=== PATIENT | male | born 1960 | race Caucasian/White ===

== ENCOUNTER → 2016-11-23 | Outpatient (CLI) | payer BC ==
[~2016-11-23] MED LIST: ATOR-54 PO; METH500T PO; METO25TA56 PO; OXYC-609 PO; TERA5CAP PO; WARF5TAB90 PO
--- NOTE | 2016-11-23 11:41 | DIAGNOSTIC IMAGING REPORT ---
KUB CLINICAL HISTORY: Right lower quadrant abdominal pain. FINDINGS: An AP supine abdominal radiograph is compared to study dated 11/21/2014. There is a nonobstructed abdominal bowel gas pattern noting moderate colonic fecal retention. There are no abnormal abdominal calcifications. Phleboliths are seen in the pelvis. The bony structures appear intact. There is mild lumbosacral spondylosis and scoliosis. IMPRESSION: Nonobstructed abdominal bowel gas pattern. Electronically signed by: Naeem Holguin M.D. 11/23/2016 11:40 AM Dictated Date/Time: 11/23/2016 11:39 AM
== END | disposition home or self-care (01) ==
LOC: C.RADBC 10:58
PROVIDERS: ATTEND Urology
DX: N40.1 Benign prostatic hyperplasia with lower urinary tract symptoms (principal)

== ENCOUNTER 2018-12-27 16:50 | Inpatient (IN) ==
[2018-12-27 19:00] LABS: Hematocrit (blood only) 19.2 % (42-52); Hemoglobin 6.5 g/dL (14.0-18.0); Mean Corpuscular Hemoglobin 30.7 pg (25-34); Mean Corpuscular Hgb Conc 33.9 g/dL (32-36); Mean Corpuscular Volume 90.6 fL (80-100); Mean Platelet Volume 8.8 fL (7.4-10.4); Platelet Count 209 K/uL (130-400); RDW Coefficient of Variation 13.6 % (11.5-14.5); RDW Standard Deviation 45.5 fL (36.4-46.3); Red Blood Count 2.12 M/uL (4.7-6.1); White Blood Count 7.33 K/uL (4.8-10.8)
[2018-12-27 19:13] LABS: Alanine Aminotransferase 20 U/L (12-78); Albumin Level 3.2 gm/dl (3.4-5.0); Aspartate Aminotransferase 27 U/L (15-37); BUN Creatinine Ratio 14.1 (10-20); Blood Urea Nitrogen 10 mg/dl (7-18); Calcium 8.8 mg/dl (8.5-10.1); Carbon Dioxide 31 mmol/L (21-32); Chloride 102 mmol/L (98-107); Est GFR (African American) 118.2; Glucose 101 mg/dl (70-99); Potassium 3.8 mmol/L (3.5-5.1); Sodium 138 mmol/L (136-145)
[2018-12-27 19:15] LABS: Albumin Globulin Ratio 1.1 (0.9-2); Alkaline Phosphatase 57 U/L (45-117); Bilirubin,Total 1.4 mg/dl (0.2-1); Globulin 2.8 gm/dl (2.5-4.0)
[2018-12-27 19:16] LABS: INR 2.1 (0.9-1.1); Partial Thromboplastin Ratio 1.9; Prothrombin Time 20.7 Seconds (9.0-12.0)
[2018-12-27 19:20] LABS: Partial Thromboplastin Time 50.5 Seconds (21.0-31.0)
[2018-12-27] MEDS ORDERED: IOVERSOL 100ml IV PRN (19:33)
[2018-12-27 19:39] LABS: Basophils # (auto) 0.02 K/uL (0-0.2); Basophils % (auto) 0.3 %; Eosinophils # (auto) 0.09 K/uL (0-0.5); Eosinophils % (auto) 1.2 %; Immature Granulocytes # (auto) 0.01 K/uL (0.00-0.02); Immature Granulocytes % (auto) 0.1 %; Lymphocytes # (auto) 1.12 K/uL (1.2-3.4); Lymphocytes % (auto) 15.3 %; Monocytes # (auto) 0.76 K/uL (0.11-0.59); Monocytes % (auto) 10.4 %; Neutrophils # (auto) 5.33 K/uL (1.4-6.5); Neutrophils % (auto) 72.7 %; RBC Morphology Unremarkable
--- NOTE | 2018-12-27 19:56 | CT Scan Report ---
RIGHT FEMUR CT with contrast CT DOSE: 315.68 mGy.cm HISTORY: Right thigh swelling. expanding hematoma TECHNIQUE: Multiaxial CT images of the right femur were performed and reformatted in the sagittal and coronal plane following the use of intravenous contrast. A dose lowering technique was utilized adh ering to the principles of ALARA. COMPARISON: Right femur CTA 12/24/2018. FINDINGS: No fracture or dislocation within the visualized pelvis or right femur. Extensive subcutane ous edema throughout the right thigh. This has progressed. The 20 x 8 x 6 cm right gracilis intramusc ular hematoma is not significantly changed. There is a small focus of hemorrhage also adjacent to the muscle which is stable. There is been interval development of a small intramuscular hematoma within the semimembranosus muscle which measures approximately 4.2 cm. IMPRESSION: 1. No significant change in the 20 x 8 x 6 cm right psoas intramuscular hematoma. 2. Interval development of a 4.2 cm intramuscular hematoma within the right semimembranosus muscle. 3. Progressive subcutaneous edema within the right thigh. Electronically signed by: Aren Vance M.D. 12/27/2018 7:55 PM
[2018-12-27] MEDS ORDERED: SODIUM CHLORIDE 0.9% 250 ML IV PRN ×2 (20:33→21:51)
[2018-12-27] MEDS ORDERED: ACETAMINOPHEN 325 MG TAB PO PRN (21:23)
[2018-12-27] MEDS ORDERED: ONDANSETRON INJ 2 MG/ML 2 ML VIAL IV PRN (21:51)
[2018-12-27] MEDS: HYDROCODONE/ACETAMINOPHEN 7.5/325MG TAB PO PRN (22:00)
--- NOTE | 2018-12-27 22:52 | History & Physical Report ---
Date of Service December 27, 2018 Assessment & Plan (1) Symptomatic anemia: Admit tele will give total of 2 units PRBCs check CBC in the am (2) Hematoma of right thigh: No sign of compartment syndrome will have nursing do neurovascular checks q 4 hours Consult ortho Pain control. (3) Anticoagulated on Coumadin: His bleeding is not life threatening at this time to warrant reversal of warfarin. I will give blood and monitor HGB level. At which point it is felt that the patient HGB is stable and the blood loss has stopped, I would recommend restarting anticoagulation at the discretion of the attending at that time. (4) Aortic valve replaced: Mechanical aortic valve with INR goal of 2.5-3.5 INR is 2.1 at this time, to which I am comfortable Daily INR. (5) HTN (hypertension): No issues at this time Takes Terazosin for BPH and BP according to patient. Continue Terazosin. (6) High cholesterol: Continue Atorvastatin. History of Present Illness 58 y/o male presented to the ED from his PCP office with anemia as a result of hematoma in the right thigh. The patient was skydiving 5 days prior and suffered a hard landing which caused b/l sprained ankles and right thigh hematoma. He has had HGB checks over the past few days and today was found to have HGB 6.5. He is symptomatic with this finding to include lightheadedness with standing and overall fatigue. His situation is complicated in that he takes warfarin for mechanical aortic valve. He does have 8/10 pain in the the right thigh, but the pain is not more than he has been having. No F/C, cough, SOB, chest pain, N/V/D. Primary Care Provider: BRIAN Ulloa Allergies Allergy/AdvReac Type Severity Reaction Status Date / Time cyclobenzaprine Allergy Unknown Hyper Verified 12/27/18 15:47 Home Medications Home Medications Medication Instructions Recorded Confirmed Type multivitamin capsule 1 cap PO DAILY 07/24/18 12/27/18 History atorvastatin 20 mg tablet 20 mg PO QPM #90 tab 08/23/18 12/27/18 Rx methocarbamol 500 mg tablet 500 - 1,000 mg PO QID PRN tab 11/03/18 12/27/18 History sildenafil (antihypertensive) 20 20 mg PO ONCE #60 tab 12/19/18 12/27/18 Rx mg tablet terazosin 5 mg capsule 5 mg PO HS #90 cap 12/19/18 12/27/18 Rx warfarin 2.5 mg PO GRAHAM 12/24/18 12/27/18 History warfarin 5 mg PO MOTUWETHFRSA 12/24/18 12/27/18 History hydrocodone 5 mg-acetaminophen 325 1 tab PO Q6H PRN #20 tab 12/25/18 12/27/18 Rx mg tablet Past Med/Surg History Medical History Actinic keratosis (Acute) Atypical nevi (Acute) Benign prostatic hyperplasia with urinary obstruction (Acute) Current use of director long term care anticoagulation (Acute) Degeneration of cervical intervertebral disc (Acute) Surgical History Aortic valve replaced (Acute) Social History Preferred Language: Macanese Communication Ability: Effective Prison Officer Required: No Beliefs That Will Affect Care: None Current Living Situation: Family Other Information That Helps Us Care for You: No Feels Safe at Home: Yes Safety Concerns: Feels Safe At This Time Smoking Status: Unknown if ever smoked Hx Alcohol Use: No Hx Substance Use: No Review of Systems Review of Systems: NEEDS EDITING Constitutional- no fever; no weight loss Eyes- no acute visual changes ENT- no sinus drainage; no pharyngitis Pulmonary- no cough, no wheezing, no shortness of breath Cardiac- no chest pain, no palpitations, no orthopnea, no dependent edema GI- no nausea, no vomiting, no diarrhea, no melena, no hematochezia - no dysuria, no hematuria Musculoskeletal- As in HPI Derm- no rashes, + ecchymosis to the Right thigh Hematologic- Swelling and ecchymosis of right thigh in conjunction with hematoma. Lymphatics- no adenopathy Endocrine- no polyuria or polydipsia; no heat or cold intolerance Neuro- no headaches, no focal neurologic symptoms Psych- no anxiety, no depression Physical Exam Physical Exam: NEEDS EDITING General- adult male, NAD Head- atraumatic Eyes- PERRL, EOMI, anicteric ENT- oropharynx clear Neck- supple, no JVD, no adenopathy, no thyromegaly. Lungs- clear to auscultation No rales, rhonchi, or wheezes. Heart- regular rhythm; Mechanical valve click, no gallop, no rub appreciated Abdomen- normal bowel sounds, soft, nontender. Extremities- Swelling to right thigh with tenderness to palpation and ecchymosis. Neuro- alert, oriented x 3; PERRL, EOMI; Non-focal, coke loader II-XII grossly intact. distal neurovascular is intact right lower ext. Skin- warm & dry, ecchymosis to right thigh. Results & Data Vital Signs (Past 12 Hours) Vital Signs Temp Pulse Pulse Resp BP BP Pulse Ox 12/27/18 22:04 36.8 C 107 H 22 135/75 98 12/27/18 21:55 37.4 C 115 H 17 141/67 H 96 12/27/18 21:51 121 H 18 127/72 97 12/27/18 21:49 37.1 C 109 H 18 127/72 96 12/27/18 21:46 111 H 12 127/72 98 12/27/18 21:45 112 H 15 97 12/27/18 21:34 37.3 C 109 H 18 135/72 97 12/27/18 21:30 97 H 13 135/72 96 12/27/18 21:23 100 H 16 117/65 97 12/27/18 21:19 37.7 C H 98 H 18 117/65 96 12/27/18 21:15 95 H 15 95 12/27/18 21:03 37.5 C 96 H 17 124/66 95 12/27/18 21:01 93 H 18 124/66 95 12/27/18 21:00 96 H 17 96 12/27/18 20:30 97 H 17 131/69 96 12/27/18 20:00 94 H 23 130/74 97 12/27/18 19:42 98 H 24 98 12/27/18 19:41 99 H 15 137/66 100 12/27/18 19:00 91 H 24 122/67 99 12/27/18 18:30 92 H 16 127/69 94 12/27/18 18:00 90 13 135/66 97 12/27/18 17:30 86 12 124/65 98 12/27/18 17:28 84 16 97 12/27/18 17:19 86 12 145/72 H 98 12/27/18 17:03 36.9 C 86 20 149/71 H 100 Pulse Ox 12/27/18 22:04 12/27/18 21:55 12/27/18 21:51 100 12/27/18 21:49 12/27/18 21:46 12/27/18 21:45 12/27/18 21:34 12/27/18 21:30 12/27/18 21:23 12/27/18 21:19 12/27/18 21:15 12/27/18 21:03 12/27/18 21:01 12/27/18 21:00 12/27/18 20:30 12/27/18 20:00 12/27/18 19:42 12/27/18 19:41 12/27/18 19:00 12/27/18 18:30 12/27/18 18:00 12/27/18 17:30 12/27/18 17:28 12/27/18 17:19 12/27/18 17:03 Laboratory Results Laboratory Results WBC 7.33 K/uL (4.8-10.8) 12/27/18 18:41 RBC 2.12 M/uL (4.7-6.1) L 12/27/18 18:41 Hgb 6.5 g/dL (14.0-18.0) L* 12/27/18 18:41 Hct 19.2 % (42-52) L* 12/27/18 18:41 MCV 90.6 fL (80-100) 12/27/18 18:41 MCH 30.7 pg (25-34) 12/27/18 18:41 MCHC 33.9 g/dL (32-36) 12/27/18 18:41 RDW Std Deviation 45.5 fL (36.4-46.3) 12/27/18 18:41 RDW Coeff of Felipe 13.6 % (11.5-14.5) 12/27/18 18:41 Plt Count 209 K/uL (130-400) 12/27/18 18:41 MPV 8.8 fL (7.4-10.4) 12/27/18 18:41 Immature Gran % (Auto) 0.1 % 12/27/18 18:41 Neut % (Auto) 72.7 % 12/27/18 18:41 Lymph % (Auto) 15.3 % 12/27/18 18:41 [place] % (Auto) 10.4 % 12/27/18 18:41 Eos % (Auto) 1.2 % 12/27/18 18:41 Baso % (Auto) 0.3 % 12/27/18 18:41 Immature Gran # (Auto) 0.01 K/uL (0.00-0.02) 12/27/18 18:41 Neut # (Auto) 5.33 K/uL (1.4-6.5) 12/27/18 18:41 Lymph # (Auto) 1.12 K/uL (1.2-3.4) L 12/27/18 18:41 [place] # (Auto) 0.76 K/uL (0.11-0.59) H 12/27/18 18:41 Eos # (Auto) 0.09 K/uL (0-0.5) 12/27/18 18:41 Baso # (Auto) 0.02 K/uL (0-0.2) 12/27/18 18:41 RBC Morphology Unremarkable 12/27/18 18:41 PT 20.7 Seconds (9.0-12.0) H 12/27/18 18:41 INR 2.1 (0.9-1.1) H 12/27/18 18:41 APTT 50.5 Seconds (21.0-31.0) H* 12/27/18 18:41 PTT Ratio 1.9 12/27/18 18:41 Sodium 138 mmol/L (136-145) 12/27/18 18:41 Potassium 3.8 mmol/L (3.5-5.1) 12/27/18 18:41 Chloride 102 mmol/L (98-107) 12/27/18 18:41 Carbon Dioxide 31 mmol/L (21-32) 12/27/18 18:41 Anion Gap 6.0 (3-11) 12/27/18 18:41 BUN 10 mg/dl (7-18) 12/27/18 18:41 Creatinine 0.71 mg/dl (0.6-1.4) 12/27/18 18:41 Est Cr Clr Drug Dosing Not Reportable 12/27/18 18:41 Est GFR ( Amer) 118.2 12/27/18 18:41 Est GFR (Non-Af Amer) 102.0 12/27/18 18:41 BUN/Creatinine Ratio 14.1 (10-20) 12/27/18 18:41 Glucose 101 mg/dl (70-99) H 12/27/18 18:41 Calcium 8.8 mg/dl (8.5-10.1) 12/27/18 18:41 Total Bilirubin 1.4 mg/dl (0.2-1) H 12/27/18 18:41 AST 27 U/L (15-37) 12/27/18 18:41 ALT 20 U/L (12-78) 12/27/18 18:41 Alkaline Phosphatase 57 U/L (45-117) 12/27/18 18:41 Total Protein 6.0 gm/dl (6.4-8.2) L 12/27/18 18:41 Albumin 3.2 gm/dl (3.4-5.0) L 12/27/18 18:41 Globulin 2.8 gm/dl (2.5-4.0) 12/27/18 18:41 Albumin/Globulin Ratio 1.1 (0.9-2) 12/27/18 18:41 Blood Type O Positive 12/27/18 18:41 Antibody Screen NEGATIVE 12/27/18 18:41 Crossmatch See Detail 12/27/18 18:41 Diagnostic Findings [place], [place] [phone] CT Scan Report Patient: TESFAYE TORO AAdmit Date: 12/27/18 MR#: [id number]: [id number] [facility] Acct ID:[id number]: Date: 1960[facility] Zip: [place] [address] Age: 58Location: ED Sex: M Room/Bed: Att Phy:Diagnosis: HEMATOMA BLEEDING Deyanira Phy: Kaylan Bahena CRNPService Date: 12/27/18 Fam Phy:Interpreting Phy: Aren Vance MD Admit Phy: Ordering Phy: [place] Min MD cc: ~ RIGHT FEMUR CT with contrast CT DOSE: 315.68 mGy.cm HISTORY: Right thigh swelling. expanding hematoma TECHNIQUE: Multiaxial CT images of the right femur were performed and reformatted in the sagittal and coronal plane following the use of intravenous contrast. A dose lowering technique was utilized adhering to the principles of ALARA. COMPARISON: Right femur CTA 12/24/2018. FINDINGS: No fracture or dislocation within the visualized pelvis or right femur. Extensive subcutaneous edema throughout the right thigh. This has progressed. The 20 x 8 x 6 cm right gracilis intramuscular hematoma is not significantly changed. There is a small focus of hemorrhage also adjacent to the muscle which is stable. There is been interval development of a small intramuscular hematoma within the semimembranosus muscle which measures approximately 4.2 cm. IMPRESSION: 1. No significant change in the 20 x 8 x 6 cm right psoas intramuscular hematoma. 2. Interval development of a 4.2 cm intramuscular hematoma within the right semimembranosus muscle. 3. Progressive subcutaneous edema within the right thigh. Electronically signed by: Aren Vance M.D. 12/27/2018 7:55 PM Dictated: 12/27/181947 Transcribed: 12/27/181947 Code Status & VTE Plan VTE Prophylaxis Plan VTE Prophylaxis will be ordered: Yes PG Care Time/CCT Total # of Minutes Spent Total Time Spent: 65 Total Time Spent with Patient: Total time spent is greater than 50% in coordination of care (as documented) at patient's floor/unit and/or counseling patient: (1) Hematoma of right thigh Encounter type: subsequent encounter Qualified Code(s): S70.11XD - Contusion of right thigh, subsequent encounter
--- NOTE | 2018-12-27 23:10 | Emergency Department Note ---
Entered by Mirtha Magana acting as a scribe for [facility] MD ED Provider Note CHIEF COMPLAINT: Fall HISTORY OF PRESENT ILLNESS: The patient is a 58 year old male presenting to the Emergency Department complaining of an episode of a fall starting 5 days ago. The patient reports that he went sukhdev diving 5 days ago and landed on his legs improperly. He states that his has a bruise that has radiated from his right thigh to his right groin in the last day. He explains that his ankles are sore from this fall. He notes that when he stands up too fast he becomes dizzy and that walking around worsens his symptoms. He adds that he is pale. The patient reports that he went to his PCP for these same symptoms and had blood work done 1 day ago. He states that his hemoglobin at that time was 6.9. He adds that he regularly takes a blood thinner. Pt denies LOC, headache, fevers, chills, diaphoresis, visual changes, neck pain, chest pain, breathing difficulties, nausea, vomiting, abdominal pain, back pain, melena, hematochezia, urinary symptoms, numbness, lymphadenopathy or other complaints. REVIEW OF SYSTEMS: See HPI for pertinent positives and negatives. A total of ten systems were reviewed and were otherwise negative. PMHx/PSHx: See past medical and surgical list. SOCIAL HISTORY: Patient lives at home. Never smoker. PHYSICAL EXAM: GENERAL: Awake, alert, well-appearing, in no distress HENT: Normocephalic, atraumatic. Oropharynx unremarkable. EYES: PERRL. Normal conjunctiva. Sclera non-icteric. NECK: Inspection normal. Non-tender. Supple. No nuchal rigidity. FROM. No masses . RESPIRATORY: Clear to auscultation. No wheezes. No rales. Normal respiratory effort. CARDIAC: Normal rate. Normal rhythm. No murmurs. No rubs. Extremities warm and well perfused. Pulses equal. No JVD. GI: Soft, non-distended. No tenderness to palpation. No rebound or guarding. No masses. RECTAL: Deferred. MUSCULOSKELETAL: Significant bruising and swelling to right groin, right medial and posterior thigh. Chest examination reveals no tenderness. The back is symmetrical on inspection without obvious abnormality. There is no CVA tenderness to palpation. No joint edema. LOWER EXTREMITIES: Calves are equal size bilaterally and non-tender. No disco loration. NEURO: Normal sensorium. No sensory or motor deficits noted. SKIN: No rash or jaundice noted. EMERGENCY DEPARTMENT COURSE: 1733: Past medical records reviewed. The patient was evaluated in room A12A, and a complete history and physical examination were performed. 1913: I reevaluated the patient at this time. I updated him on his results. He is going over to CT. 2032: The patient consented for a blood transfusion at this time. 2039: I discussed the patients case with Dr. William FINK hospitalist. He will evaluate the patient for further management. CRITICAL CARE: I have personally spent 30 minutes of critical care time in the direct management of this patient. This includes bedside care, interpretation of kei gnostic studies, and testing, discussion with consultants, patient, and family members, and other required patient management activities. This 30 minutes is in excess of all separately billable procedures. MEDICAL DECISION MAKING: Patient presented to the emergency department by direction of his primary office because of the low hemoglobin on outpatient laboratory testing. The patient had a fall and is on Coumadin. Differential includes expanding hematoma, compartment syndrome, infection, electrolyte abnormality, as well as others. Physical examination did not reveal any signs of compartment syndrome but he has an impressive amount of swelling and hematoma in the right thigh region. The patient underwent CT imaging which showed original hematoma is about the same size however there is a second hematoma formation. This would explain his drop in hemoglobin. The patient is symptomatic with his anemia. His blood work reveals an even worse hemoglobin measurement with that of 6.5. Given the anemia and he is anticoagulation on Coumadin the patient was consented and agreed for packed red blood cell transfusion. He will need further management in the hospital as his case is unique given his heart valve as well as the need for anticoagulation. A consultation was placed with internal medicine. Patient was evaluated in the ER for further management. IMPRESSION: Symptomatic anemia, Right thigh hematoma, Anticoagulated on Coumadin PLAN: Being Evaluated by a Hospitalist The scribe's documentation has been prepared under my direction and personally reviewed by me in its entirety. I confirm that the note above accurately reflects all work, treatment, procedures, and medical decision making performed by me. Impression & Plan Symptomatic anemia, Hematoma of right thigh, Anticoagulated on Coumadin Past Med/Surg History Medical History Actinic keratosis (Acute) Atypical nevi (Acute) Benign prostatic hyperplasia with urinary obstruction (Acute) Current use of long-term anticoagulation (Acute) Degeneration of cervical intervertebral disc (Acute) Surgical History Aortic valve replaced (Acute) Social History Preferred Language: Estonian Communication Ability: Effective Humane Agent Required: No Beliefs That Will Affect Care: None Current Living Situation: Family Other Information That Helps Us Care for You: No Feels Safe at Home: Yes Safety Concerns: Feels Safe At This Time Smoking Status: Unknown if ever smoked Hx Alcohol Use: No Hx Substance Use: No Results & Data Vital Signs Vital Signs - 24 hr 12/27/18 17:03 12/27/18 17:19 12/27/18 17:28 Temperature 36.9 C Temperature Source Oral Sepsis Recent Fever Within 48 Hours No Sepsis New/Unexplained Change in Mental Status No Sepsis Action Taken by Nursing No Action Required Pulse Rate 86 86 84 Pulse Rate from SpO2 Sensor 86 84 Pulse Rhythm Pulse Strength Respiratory Rate 20 12 16 Respiratory Effort / Characteristics Non-Labored Spontaneous Blood Pressure 149/71 H 145/72 H Blood Pressure Mean 97 96 Blood Pressure Position Sitting Pulse Oximetry 100 98 97 Oxygen Delivery Method Room Air 12/27/18 17:30 12/27/18 18:00 12/27/18 18:30 Temperature Temperature Source Sepsis Recent Fever Within 48 Hours Sepsis New/Unexplained Change in Mental Status Sepsis Action Taken by Nursing Pulse Rate 86 90 92 H Pulse Rate from SpO2 Sensor 86 89 92 H Pulse Rhythm Pulse Strength Respiratory Rate 12 13 16 Respiratory Effort / Characteristics Blood Pressure 124/65 135/66 127/69 Blood Pressure Mean 84 89 88 Blood Pressure Position Pulse Oximetry 98 97 94 Oxygen Delivery Method 12/27/18 19:00 12/27/18 19:41 12/27/18 19:42 Temperature Temperature Source Sepsis Recent Fever Within 48 Hours Sepsis New/Unexplained Change in Mental Status Sepsis Action Taken by Nursing Pulse Rate 91 H 99 H 98 H Pulse Rate from SpO2 Sensor 91 H 99 H 97 H Pulse Rhythm Pulse Strength Respiratory Rate 24 15 24 Respiratory Effort / Characteristics Blood Pressure 122/67 137/66 Blood Pressure Mean 85 89 Blood Pressure Position Pulse Oximetry 99 100 98 Oxygen Delivery Method 12/27/18 20:00 12/27/18 20:30 12/27/18 21:00 Temperature Temperature Source Sepsis Recent Fever Within 48 Hours Sepsis New/Unexplained Change in Mental Status Sepsis Action Taken by Nursing Pulse Rate 94 H 97 H 96 H Pulse Rate from SpO2 Sensor 94 H 96 H 95 H Pulse Rhythm Pulse Strength Respiratory Rate 23 17 17 Respiratory Effort / Characteristics Blood Pressure 130/74 131/69 Blood Pressure Mean 92 89 Blood Pressure Position Pulse Oximetry 97 96 96 Oxygen Delivery Method 12/27/18 21:01 12/27/18 21:03 12/27/18 21:15 Temperature 37.5 C Temperature Source Oral Sepsis Recent Fever Within 48 Hours Sepsis New/Unexplained Change in Mental Status Sepsis Action Taken by Nursing Pulse Rate 93 H 96 H 95 H Pulse Rate from SpO2 Sensor 93 H Pulse Rhythm Pulse Strength Respiratory Rate 18 17 15 Respiratory Effort / Characteristics Blood Pressure 124/66 124/66 Blood Pressure Mean 85 85 Blood Pressure Position Pulse Oximetry 95 95 95 Oxygen Delivery Method 12/27/18 21:19 Temperature 37.7 C H Temperature Source Oral Sepsis Recent Fever Within 48 Hours Sepsis New/Unexplained Change in Mental Status Sepsis Action Taken by Nursing Pulse Rate 98 H Pulse Rate from SpO2 Sensor Pulse Rhythm Regular Pulse Strength Normal Respiratory Rate 18 Respiratory Effort / Characteristics Blood Pressure 117/65 Blood Pressure Mean 82 Blood Pressure Position Lying Pulse Oximetry 96 Oxygen Delivery Method Home Medications Current Medication List: was personally reviewed by me Laboratory Data Attestation: I reviewed the patient's lab results. Result diagrams: 12/27/18 18:41 12/27/18 18:41 Lab Results 12/27/18 12/27/18 12/27/18 Range/Units 18:41 18:41 18:41 WBC 7.33 (4.8-10.8) K/uL RBC 2.12 L (4.7-6.1) M/uL Hgb 6.5 L* (14.0-18.0) g/dL Hct 19.2 L* (42-52) % MCV 90.6 (80-100) fL MCH 30.7 (25-34) pg MCHC 33.9 (32-36) g/dL RDW Std Deviation 45.5 (36.4-46.3) fL RDW Coeff of Felipe 13.6 (11.5-14.5) % Plt Count 209 (130-400) K/uL MPV 8.8 (7.4-10.4) fL Immature Gran % (Auto) 0.1 % Neut % (Auto) 72.7 % Lymph % (Auto) 15.3 % [place] % (Auto) 10.4 % Eos % (Auto) 1.2 % Baso % (Auto) 0.3 % Immature Gran # (Auto) 0.01 (0.00-0.02) K/uL Neut # (Auto) 5.33 (1.4-6.5) K/uL Lymph # (Auto) 1.12 L (1.2-3.4) K/uL [place] # (Auto) 0.76 H (0.11-0.59) K/uL Eos # (Auto) 0.09 (0-0.5) K/uL Baso # (Auto) 0.02 (0-0.2) K/uL RBC Morphology Unremarkable PT 20.7 H (9.0-12.0) Seconds INR 2.1 H (0.9-1.1) APTT 50.5 H* (21.0-31.0) Seconds PTT Ratio 1.9 Sodium 138 (136-145) mmol/L Potassium 3.8 (3.5-5.1) mmol/L Chloride 102 (98-107) mmol/L Carbon Dioxide 31 (21-32) mmol/L Anion Gap 6.0 (3-11) BUN 10 (7-18) mg/dl Creatinine 0.71 (0.6-1.4) mg/dl Est Cr Clr Drug Dosing Not Reportable Est GFR ( Amer) 118.2 Est GFR (Non-Af Amer) 102.0 BUN/Creatinine Ratio 14.1 (10-20) Glucose 101 H (70-99) mg/dl Calcium 8.8 (8.5-10.1) mg/dl Total Bilirubin 1.4 H (0.2-1) mg/dl AST 27 (15-37) U/L ALT 20 (12-78) U/L Alkaline Phosphatase 57 (45-117) U/L Total Protein 6.0 L (6.4-8.2) gm/dl Albumin 3.2 L (3.4-5.0) gm/dl Globulin 2.8 (2.5-4.0) gm/dl Albumin/Globulin Ratio 1.1 (0.9-2) Blood Type Antibody Screen Crossmatch 12/27/18 Range/Units 18:41 WBC (4.8-10.8) K/uL RBC (4.7-6.1) M/uL Hgb (14.0-18.0) g/dL Hct (42-52) % MCV (80-100) fL MCH (25-34) pg MCHC (32-36) g/dL RDW Std Deviation (36.4-46.3) fL RDW Coeff of Felipe (11.5-14.5) % Plt Count (130-400) K/uL MPV (7.4-10.4) fL Immature Gran % (Auto) % Neut % (Auto) % Lymph % (Auto) % [place] % (Auto) % Eos % (Auto) % Baso % (Auto) % Immature Gran # (Auto) (0.00-0.02) K/uL Neut # (Auto) (1.4-6.5) K/uL Lymph # (Auto) (1.2-3.4) K/uL [place] # (Auto) (0.11-0.59) K/uL Eos # (Auto) (0-0.5) K/uL Baso # (Auto) (0-0.2) K/uL RBC Morphology PT (9.0-12.0) Seconds INR (0.9-1.1) APTT (21.0-31.0) Seconds PTT Ratio Sodium (136-145) mmol/L Potassium (3.5-5.1) mmol/L Chloride (98-107) mmol/L Carbon Dioxide (21-32) mmol/L Anion Gap (3-11) BUN (7-18) mg/dl Creatinine (0.6-1.4) mg/dl Est Cr Clr Drug Dosing Est GFR ( Amer) Est GFR (Non-Af Amer) BUN/Creatinine Ratio (10-20) Glucose (70-99) mg/dl Calcium (8.5-10.1) mg/dl Total Bilirubin (0.2-1) mg/dl AST (15-37) U/L ALT (12-78) U/L Alkaline Phosphatase (45-117) U/L Total Protein (6.4-8.2) gm/dl Albumin (3.4-5.0) gm/dl Globulin (2.5-4.0) gm/dl Albumin/Globulin Ratio (0.9-2) Blood Type O Positive Antibody Screen NEGATIVE Crossmatch See Detail Administered Medications Hydrocodone Bitart/Acetaminophen ([place]ushing 7.5/325mg) 1 tab PO Q6H PRN PRN Reason: Moderate Pain Stop: 01/10/19 21:22 Last Admin: 12/27/18 22:00 Dose: 1 tab Documented by: [id number] Ioversol (Optiray 320 100ml) 92 ml IV ONCE PRN PRN Reason: Interaction Checking Stop: 12/31/18 19:32 Last Admin: 12/27/18 19:34 Dose: 92 ml Documented by: [id number] Imaging Data Radiologist's Impression: Radiology results as stated below per my review and the radiologist's interpretation: RIGHT FEMUR CT with contrast CT DOSE: 315.68 mGy.cm HISTORY: Right thigh swelling. expanding hematoma TECHNIQUE: Multiaxial CT images of the right femur were performed and reformatted in the sagittal and coronal plane following the use of intravenous contrast. A dose lowering technique was utilized adhering to the principles of ALARA. COMPARISON: Right femur CTA 12/24/2018. FINDINGS: No fracture or dislocation within the visualized pelvis or right femur. Extensive subcutaneous edema throughout the right thigh. This has progressed. The 20 x 8 x 6 cm right gracilis intramuscular hematoma is not significantly changed. There is a small focus of hemorrhage also adjacent to the muscle which is stable. There is been interval development of a small intramuscular hematoma within the semimembranosus muscle which measures approximately 4.2 cm. IMPRESSION: 1. No significant change in the 20 x 8 x 6 cm right psoas intramuscular hematoma. 2. Interval development of a 4.2 cm intramuscular hematoma within the right semimembranosus muscle. 3. Progressive subcutaneous edema within the right thigh. Electronically signed by: Aren Vance M.D. 12/27/2018 7:55 PM Blood Pressure Blood Pressure Findings: Elevated blood pressure Blood Pressure Disposition: further management by hospitalist Discharge Plan Visit Data *Final* Discharge Date/Time: 12/27/18 21:51 Chief Complaint: Bleeding Stated Complaint: HEMATOMA BLEEDING ED Provider: [facility] Discharge Problem: Symptomatic anemia, Hematoma of right thigh, Anticoagulated on Coumadin Patient Disposition: Admitted As Inpatient Discharge Instructions Interventions: ED Discharge Assessment Last Done: 12/27/18 21:51 Discharge Problem: Hematoma of right thigh Qualifiers: Encounter type: initial encounter Qualified Code(s): S70.11XA - Contusion of ri ght thigh, initial encounter The scribe's documentation has been prepared under my direction and personally reviewed by me in its entirety. I confirm that the note above accurately reflects all work, treatment, procedures, and medical decision making performed by me.
[2018-12-28] MEDS: MoRPHine SULFATE 4 MG/ML 1 ML CARP\\VIAL IV PRN ×2 (03:07→09:12)
[2018-12-28] MEDS: HYDROCODONE/ACETAMINOPHEN 7.5/325MG TAB PO PRN ×4 (04:56→23:49)
[2018-12-28 06:49] LABS: Hematocrit (blood only) 23.5 % (42-52); Hemoglobin 7.8 g/dL (14.0-18.0); Mean Corpuscular Hemoglobin 29.9 pg (25-34); Mean Corpuscular Hgb Conc 33.2 g/dL (32-36); Mean Platelet Volume 8.9 fL (7.4-10.4); Platelet Count 224 K/uL (130-400); RDW Coefficient of Variation 13.9 % (11.5-14.5); RDW Standard Deviation 45.6 fL (36.4-46.3); Red Blood Count 2.61 M/uL (4.7-6.1); White Blood Count 6.25 K/uL (4.8-10.8)
[2018-12-28 07:04] LABS: INR 2.2 (0.9-1.1)
[2018-12-28 07:17] LABS: BUN Creatinine Ratio 17.4 (10-20); Calcium 8.4 mg/dl (8.5-10.1); Creatinine Clr Calc Pharmacy 118.2 ml/min; Est GFR (Non-African American) 104.4; Potassium 3.7 mmol/L (3.5-5.1)
[2018-12-28] MEDS: MULTIVITAMIN TAB PO SCH (09:21)
[2018-12-28] MEDS: TERAZOSIN HCL 5 MG CAP PO SCH (09:21)
[2018-12-28] MEDS: ATORVASTATIN 20 MG TAB PO SCH (09:22)
[2018-12-28] MEDS: DOCUSATE SODIUM 100 MG CAP PO SCH ×2 (11:00→20:37)
[2018-12-28 15:13] LABS: Hematocrit (blood only) 24.3 % (42-52); Hemoglobin 8.2 g/dL (14.0-18.0)
--- NOTE | 2018-12-28 17:50 | Orthopedic Consultation ---
Date of Consultation December 28, 2018 Assessment & Plan (1) Hematoma of right thigh: Recommend ice to proximal medial thigh, elevate as tolerated, reverse anticoagulants. This may be able to be treated conservatively if pain tolerable and no further expansion of hematoma or development of any compartment syndrome symptoms. Patient can later have compressive wrap around his thigh and wear compression pants after a period of time. Monitor situation during hospital stay. Patient can follow-up with Dr. Camarena as an outpatient after discharge. History of Present Illness Attending Physician: Josenoelle Evans 58-year-old male who has history of anticoagulation for aortic valve replacement who was skydiving for second time and had an injury. The harness straps to wrap around the inner thigh and he developed bleeding and swelling post the injury. He developed anemia being managed by the medical service. Patient has a recent history of having Visco supplementation injections of his right knee status post right knee arthroscopy by Dr. Camarena with osteoarthritis in the knee. Allergies Allergy/AdvReac Type Severity Reaction Status Date / Time cyclobenzaprine Allergy Unknown Hyper Verified 12/27/18 15:47 Home Medications Home Medications Medication Instructions Recorded Confirmed Type multivitamin capsule 1 cap PO DAILY 07/24/18 12/27/18 History atorvastatin 20 mg tablet 20 mg PO QPM #90 tab 08/23/18 12/27/18 Rx methocarbamol 500 mg tablet 500 - 1,000 mg PO QID PRN tab 11/03/18 12/27/18 History sildenafil (antihypertensive) 20 20 mg PO ONCE #60 tab 12/19/18 12/27/18 Rx mg tablet terazosin 5 mg capsule 5 mg PO HS #90 cap 12/19/18 12/27/18 Rx warfarin 2.5 mg PO GRAHAM 12/24/18 12/27/18 History warfarin 5 mg PO MOTUWETHFRSA 12/24/18 12/27/18 History hydrocodone 5 mg-acetaminophen 325 1 tab PO Q6H PRN #20 tab 12/25/18 12/27/18 Rx mg tablet Patient History Medical History Actinic keratosis (Acute) Atypical nevi (Acute) Benign prostatic hyperplasia with urinary obstruction (Acute) Current use of long-term anticoagulation (Acute) Degeneration of cervical intervertebral disc (Acute) Surgical History Aortic valve replaced (Acute) Social History Preferred Language: Mongolian Communication Ability: Effective Camp Cook Required: No Beliefs That Will Affect Care: None Current Living Situation: Family Feels Safe at Home: Yes Smoking Status: Unknown if ever smoked Hx Alcohol Use: No Hx Substance Use: No Review of Systems Review of Systems: Not having any right knee pain although has had more swelling since injury. No chest pain shortness of breath. Physical Exam Physical Exam: Right thigh with ecchymosis surrounding the thigh lateral posterior medial. He has tenderness over his hip adductor's more proximal with some slight tenseness to the tissue in the proximal area but no clinical evidence of any compartment syndrome. His neurological exam is intact distally with normal motor sensory function. There is normal capillary refill and pulses. Right knee is a mild to moderate effusion no instability no pain in the knee with range of motion. Some pain in the thigh with range of motion of the hip. Results & Data Vital Signs (Past 12 Hours) Vital Signs Temp Pulse Resp BP Pulse Ox 12/28/18 16:22 37.4 C 86 18 131/70 96 12/28/18 12:00 36.9 C 96 H 20 121/70 96 Hematoma psoas muscle and proximal hamstring (1) Hematoma of right thigh Encounter type: subsequent encounter Qualified Code(s): S70.11XD - Contusion of right thigh, subsequent encounter
--- NOTE | 2018-12-28 19:42 | Hospitalist Progress Note ---
Date of Service December 28, 2018 Assessment & Plan (1) Hematoma of right thigh: Due to trauma from rough landing after sukhdev-diving -- in the setting of chronic coumadin use. No sign of compartment syndrome at this time. Cont to hold coumadin for now. Repeat CBC, INR am. Appreciate ortho consult. Nonoperative management for now. Will observe again overnight. Serial labs. Pain control. Ortho recommending ice for now. Suspect he will need to change to heat at home to promote faster resolution. (2) Acute blood loss anemia: Hb 9.2 on 12/24 dropped to mid 6's after that Hb in the 12's in 2015 (don't have any other values oddly between then and now) regardless this is 2nd to extensive bleeding into the right thigh causing hematoma formation s/p 2 units PRBCS yesterday H/H now stable repeat CBC am (3) Symptomatic anemia: s/p 2 units PRBCs stable H/H today cbc am (4) Anticoagulated on Coumadin: With a mechanical valve it is reasonable to hold coumadin for 3-5 days. Thus, in the setting of such a large hematoma and risk of ongoing bleeding, will hold coumadin again today. Will re-visit issue of when to resume coumadin with orthopedics tomorrow. (5) Aortic valve replaced: Mechanical aortic valve with INR goal of 2.5-3.5 INR is 2.2 today see discussion above INR in am (6) HTN (hypertension): Continue Terazosin. Controlled. (7) High cholesterol: Continue Atorvastatin family updated at bedside Subjective pt's main complaint is that of right thigh pain and discomfort when he tries to move or sit swelling in right thigh is largely unchanged from yesterday INRs are checked at [facility] to establish care with Dr Rodriguez kemp for [facility] valve Review of Systems Constitutional: no fatigue and no anorexia Respiratory: no cough and no dyspnea Cardiovascular: no chest pain Gastrointestinal: no abdominal pain Neurologic: no loss of sensation, no numbness and no paresthesia Physical Exam Constitutional: well developed and well nourished; no acute distress and no altered mental status ENMT: external ear and nose normal, oropharynx normal Respiratory: normal respiratory effort, lungs clear to auscultation Cardiovascular: Rate/Rhythm: regular rate and regular rhythm Heart Sounds: normal S1 and normal S2 (mechanical valve closure sound); no murmur Vessels: posterior tibial pulses present and dorsalis pedis pulses present; no JVD Extremities: + edema (2-3+ right leg) Gastrointestinal (Abdomen): normal bowel sounds, soft, nontender, no hepatosplenomegaly Musculoskeletal: right hip tender with passive ROM of right leg Skin: + ecchymosis extensive ecchymoses extending from inguinal ligament, especially medially on right leg, down towards the right knee region there is large amount of swelling corresponding to his hematoma on the medial right thigh the thigh is mildly warm and tender to touch Psychiatric: A+Ox3, euthymic affect Results & Data Vital Signs (Past 12 Hours) Vital Signs Temp Pulse Resp BP Pulse Ox 12/28/18 16:22 37.4 C 86 18 131/70 96 12/28/18 12:00 36.9 C 96 H 20 121/70 96 Laboratory Results Laboratory Results - last 24 hr 12/27/18 12/27/18 12/28/18 18:41 18:41 06:29 WBC 6.25 RBC 2.61 L Hgb 7.8 L Hct 23.5 L MCV 90.0 MCH 29.9 MCHC 33.2 RDW Std Deviation 45.6 RDW Coeff of Felipe 13.9 Plt Count 224 MPV 8.9 PT INR Sodium Potassium Chloride Carbon Dioxide Anion Gap BUN Creatinine Est Cr Clr Drug Dosing Est GFR ( Amer) Est GFR (Non-Af Amer) BUN/Creatinine Ratio Glucose Calcium Hepatitis C Ab Screen Neg Blood Type O Positive Antibody Screen NEGATIVE Crossmatch See Detail 12/28/18 12/28/18 12/28/18 06:29 06:29 14:51 WBC RBC Hgb 8.2 L Hct 24.3 L MCV MCH MCHC RDW Std Deviation RDW Coeff of Felipe Plt Count MPV PT 21.0 H INR 2.2 H Sodium 140 Potassium 3.7 Chloride 103 Carbon Dioxide 33 H Anion Gap 3.0 BUN 12 Creatinine 0.67 Est Cr Clr Drug Dosing 118.2 Est GFR ( Amer) 121.0 Est GFR (Non-Af Amer) 104.4 BUN/Creatinine Ratio 17.4 Glucose 92 Calcium 8.4 L Hepatitis C Ab Screen Blood Type Antibody Screen Crossmatch PG Care Time/CCT Total # of Minutes Spent Total Time Spent with Patient: Total time spent is greater than 50% in coordination of care (as documented) at patient's floor/unit and/or counseling patient: (1) Hematoma of right thigh Encounter type: subsequent encounter Qualified Code(s): S70.11XD - Contusion of right thigh, subsequent encounter (2) HTN (hypertension) Hypertension type: essential hypertension Qualified Code(s): I10 - Essential (primary) hypertension
[2018-12-29 06:30] LABS: Hematocrit (blood only) 22.1 % (42-52); Hemoglobin 7.5 g/dL (14.0-18.0); Mean Corpuscular Hemoglobin 30.4 pg (25-34); Mean Corpuscular Hgb Conc 33.9 g/dL (32-36); Mean Corpuscular Volume 89.5 fL (80-100); Mean Platelet Volume 8.8 fL (7.4-10.4); Platelet Count 263 K/uL (130-400); RDW Coefficient of Variation 13.7 % (11.5-14.5); RDW Standard Deviation 44.9 fL (36.4-46.3); Red Blood Count 2.47 M/uL (4.7-6.1); White Blood Count 6.41 K/uL (4.8-10.8)
[2018-12-29] MEDS: HYDROCODONE/ACETAMINOPHEN 7.5/325MG TAB PO PRN ×3 (06:35→19:06)
[2018-12-29 06:38] LABS: INR 1.5 (0.9-1.1); Prothrombin Time 15.3 Seconds (9.0-12.0)
[2018-12-29 07:02] LABS: BUN Creatinine Ratio 15.2 (10-20); Creatinine Clr Calc Pharmacy 104.2 ml/min; Est GFR (African American) 114.9; Est GFR (Non-African American) 99.2; Potassium 3.7 mmol/L (3.5-5.1)
[2018-12-29] MEDS: ATORVASTATIN 20 MG TAB PO SCH (08:13)
[2018-12-29] MEDS: MULTIVITAMIN TAB PO SCH (08:13)
[2018-12-29] MEDS: DOCUSATE SODIUM 100 MG CAP PO SCH ×2 (08:13→20:59)
--- NOTE | 2018-12-29 10:19 | Orthopedic Progress Note ---
Date of Service December 29, 2018 Assessment & Plan (1) Hematoma of right thigh: Continue ice to proximal medial thigh, elevate as tolerated, reverse anticoagulants. Continue to treat conservatively if pain tolerable and no further expansion of hematoma or development of any compartment syndrome symptoms. Currently his pain is not worsening. Patient can later have compressive wrap around his thigh and wear compression pants after a period of time. Monitor situation during hospital stay. Discussed case with Dr Evans. Repeating H/H later today. Mild drop noted from yesterday. Would hold off anticoagulants today and possibly restart tomorrow. Will continue to follow. Subjective Pt lying bed. A&O x 3. Appears comfortable. No new complaints. Pain in thigh is not worsening. Feels about the same today. Physical Exam Physical Exam: Swollen right thigh,with ecchymosis, with majority of hematoma involving proximal medial thigh. This area is firm and tender on palpation. He has good ROM of his hip and knee with only mild pain in the thigh. NV intact. Good cap refill. Results & Data Vital Signs (Past 12 Hours) Vital Signs Temp Pulse Pulse Resp BP Pulse Ox 12/29/18 08:00 78 12/29/18 07:41 36.7 C 85 18 156/79 H 94 12/29/18 02:46 36.9 C 82 15 129/67 94 12/29/18 00:15 37.2 C 89 18 125/73 96 12/29/18 00:00 109 H Laboratory Results Laboratory Results WBC 6.41 K/uL (4.8-10.8) 12/29/18 06:06 RBC 2.47 M/uL (4.7-6.1) L 12/29/18 06:06 Hgb 7.5 g/dL (14.0-18.0) L 12/29/18 06:06 Hct 22.1 % (42-52) L 12/29/18 06:06 MCV 89.5 fL (80-100) 12/29/18 06:06 MCH 30.4 pg (25-34) 12/29/18 06:06 MCHC 33.9 g/dL (32-36) 12/29/18 06:06 RDW Std Deviation 44.9 fL (36.4-46.3) 12/29/18 06:06 RDW Coeff of Felipe 13.7 % (11.5-14.5) 12/29/18 06:06 Plt Count 263 K/uL (130-400) 12/29/18 06:06 MPV 8.8 fL (7.4-10.4) 12/29/18 06:06 Immature Gran % (Auto) 0.1 % 12/27/18 18:41 Neut % (Auto) 72.7 % 12/27/18 18:41 Lymph % (Auto) 15.3 % 12/27/18 18:41 Atlantic % (Auto) 10.4 % 12/27/18 18:41 Eos % (Auto) 1.2 % 12/27/18 18:41 Baso % (Auto) 0.3 % 12/27/18 18:41 Immature Gran # (Auto) 0.01 K/uL (0.00-0.02) 12/27/18 18:41 Neut # (Auto) 5.33 K/uL (1.4-6.5) 12/27/18 18:41 Lymph # (Auto) 1.12 K/uL (1.2-3.4) L 12/27/18 18:41 Atlantic # (Auto) 0.76 K/uL (0.11-0.59) H 12/27/18 18:41 Eos # (Auto) 0.09 K/uL (0-0.5) 12/27/18 18:41 Baso # (Auto) 0.02 K/uL (0-0.2) 12/27/18 18:41 RBC Morphology Unremarkable 12/27/18 18:41 PT 15.3 Seconds (9.0-12.0) H 12/29/18 06:06 INR 1.5 (0.9-1.1) H 12/29/18 06:06 APTT 50.5 Seconds (21.0-31.0) H* 12/27/18 18:41 PTT Ratio 1.9 12/27/18 18:41 Sodium 139 mmol/L (136-145) 12/29/18 06:06 Potassium 3.7 mmol/L (3.5-5.1) 12/29/18 06:06 Chloride 104 mmol/L (98-107) 12/29/18 06:06 Carbon Dioxide 29 mmol/L (21-32) 12/29/18 06:06 Anion Gap 6.0 (3-11) 12/29/18 06:06 BUN 12 mg/dl (7-18) 12/29/18 06:06 Creatinine 0.76 mg/dl (0.6-1.4) 12/29/18 06:06 Est Cr Clr Drug Dosing 104.2 ml/min 12/29/18 06:06 Est GFR ( Amer) 114.9 12/29/18 06:06 Est GFR (Non-Af Amer) 99.2 12/29/18 06:06 BUN/Creatinine Ratio 15.2 (10-20) 12/29/18 06:06 Glucose 96 mg/dl (70-99) 12/29/18 06:06 Calcium 8.0 mg/dl (8.5-10.1) L 12/29/18 06:06 Total Bilirubin 1.4 mg/dl (0.2-1) H 12/27/18 18:41 AST 27 U/L (15-37) 12/27/18 18:41 ALT 20 U/L (12-78) 12/27/18 18:41 Alkaline Phosphatase 57 U/L (45-117) 12/27/18 18:41 Total Protein 6.0 gm/dl (6.4-8.2) L 12/27/18 18:41 Albumin 3.2 gm/dl (3.4-5.0) L 12/27/18 18:41 Globulin 2.8 gm/dl (2.5-4.0) 12/27/18 18:41 Albumin/Globulin Ratio 1.1 (0.9-2) 12/27/18 18:41 Hepatitis C Ab Screen Neg (Neg) 12/27/18 18:41 Blood Type O Positive 12/27/18 18:41 Antibody Screen NEGATIVE 12/27/18 18:41 Crossmatch See Detail 12/27/18 18:41 (1) Hematoma of right thigh Encounter type: subsequent encounter Qualified Code(s): S70.11XD - Contusion of right thigh, subsequent encounter
[2018-12-29 12:12] LABS: Hematocrit (blood only) 24.8 % (42-52); Hemoglobin 8.2 g/dL (14.0-18.0)
[2018-12-29] MEDS: FERROUS SULFATE 325 MG TAB PO SCH ×2 (12:28→20:59)
--- NOTE | 2018-12-29 20:52 | Hospitalist Progress Note ---
Date of Service December 29, 2018 Assessment & Plan (1) Hematoma of right thigh: Due to trauma from rough landing after sukhdev-diving -- in the setting of chronic coumadin use. Continues to show no signs of compartment syndrome in the right thigh. Cont to hold coumadin for now. I spoke with cardiology and holding anticoagulation for about 5 days is permissible, if necessary. Repeat CBC, INR am. Appreciate ortho consult. Nonoperative management for now. Will observe again overnight. Serial labs. Pain control. Ortho recommending ice for now. Eventually will need heat. (2) Acute blood loss anemia: 2nd to bleeding into right thigh as above. Hb 9.2 on 12/24 dropped to mid 6's after that Hb in the 12's in 2016 (don't have any other values oddly between then and now) s/p 2 units PRBCS hospital day #1 start ferrous sulfate supplementation BID H/H stable this am and this afternoon repeat CBC am (3) Symptomatic anemia: s/p 2 units PRBCs hospital day #1 stable H/H today cbc am (4) Anticoagulated on Coumadin: With a mechanical valve it is reasonable to hold coumadin for 4-5 days. Thus, in the setting of such a large hematoma and risk of ongoing bleeding, will hold coumadin again today. I spoke with ortho and they, too, recommend holding the coumadin today. INR noted to be 1.5. Risk of rebleeding is low. (5) Aortic valve replaced: Mechanical aortic valve with INR goal of 2.5-3.5 INR is 1.5 today see discussion above INR in am (6) HTN (hypertension): Continue Terazosin. Controlled. (7) High cholesterol: Continue Atorvastatin family updated at bedside hopefully d/c home tomorrow Subjective pt's right thigh feels similar to yesterday. he also thinks it looks similar. using ice to thigh. tele stable. feels good w/ exception of right thigh pain. no new complaints. Review of Systems Constitutional: no fever, no chills, no fatigue and no anorexia Respiratory: no dyspnea Cardiovascular: no chest pain, no dyspnea on exertion, no orthopnea and no paroxysmal nocturnal dyspnea Gastrointestinal: no abdominal pain, no nausea and no vomiting Physical Exam Constitutional: well developed and well nourished; no acute distress and no altered mental status ENMT: external ear and nose normal, oropharynx normal Respiratory: normal respiratory effort, lungs clear to auscultation Cardiovascular: Rate/Rhythm: regular rate and regular rhythm Heart Sounds: normal S1 and normal S2 (mechanical valve closure sound); no murmur Vessels: posterior tibial pulses present and dorsalis pedis pulses present; no JVD Extremities: + edema (2-3+ right leg) Gastrointestinal (Abdomen): normal bowel sounds, soft, nontender, no hepatosplenomegaly Musculoskeletal: hematoma right thigh, worse medially; tense to palpation but nontender. NO MAJOR CHANGE GROSSLY IN COMPARISON TO 12/28 examination. Skin: + ecchymosis (extensive; most of right thigh, worse medially -- no change from 12/28 exam) Psychiatric: A+Ox3, euthymic affect Results & Data Vital Signs (Past 12 Hours) Vital Signs Temp Pulse Pulse Resp BP Pulse Ox 12/29/18 19:57 37.4 C 80 18 136/68 98 12/29/18 15:54 76 12/29/18 15:27 37.2 C 88 19 129/72 98 12/29/18 11:39 36.7 C 79 17 128/65 98 Laboratory Results Laboratory Results - last 24 hr 12/27/18 12/29/18 12/29/18 18:41 06:06 06:06 WBC 6.41 RBC 2.47 L Hgb 7.5 L Hct 22.1 L MCV 89.5 MCH 30.4 MCHC 33.9 RDW Std Deviation 44.9 RDW Coeff of Felipe 13.7 Plt Count 263 MPV 8.8 PT 15.3 H INR 1.5 H Sodium Potassium Chloride Carbon Dioxide Anion Gap BUN Creatinine Est Cr Clr Drug Dosing Est GFR ( Amer) Est GFR (Non-Af Amer) BUN/Creatinine Ratio Glucose Calcium Crossmatch See Detail 12/29/18 12/29/18 06:06 11:56 WBC RBC Hgb 8.2 L Hct 24.8 L MCV MCH MCHC RDW Std Deviation RDW Coeff of Felipe Plt Count MPV PT INR Sodium 139 Potassium 3.7 Chloride 104 Carbon Dioxide 29 Anion Gap 6.0 BUN 12 Creatinine 0.76 Est Cr Clr Drug Dosing 104.2 Est GFR ( Amer) 114.9 Est GFR (Non-Af Amer) 99.2 BUN/Creatinine Ratio 15.2 Glucose 96 Calcium 8.0 L Crossmatch PG Care Time/CCT Total # of Minutes Spent Total Time Spent with Patient: Total time spent is greater than 50% in coordination of care (as documented) at patient's floor/unit and/or counseling patient: (1) Hematoma of right thigh Encounter type: subsequent encounter Qualified Code(s): S70.11XD - Contusion of right thigh, subsequent encounter (2) HTN (hypertension) Hypertension type: essential hypertension Qualified Code(s): I10 - Essential (primary) hypertension
[2018-12-29] MEDS: TERAZOSIN HCL 5 MG CAP PO SCH (20:59)
[2018-12-29] MEDS: MoRPHine SULFATE 4 MG/ML 1 ML CARP\\VIAL IV PRN (23:22)
[2018-12-30] MEDS: HYDROCODONE/ACETAMINOPHEN 7.5/325MG TAB PO PRN ×2 (01:43→08:44)
--- NOTE | 2018-12-30 06:11 | Orthopedic Progress Note ---
Date of Service December 30, 2018 Assessment & Plan (1) Hematoma of right thigh: Continue with conservative measures, ice to proximal medial thigh, elevate as tolerated, reverse anticoagulants, most recent INR 1.5. Continue to treat conservatively if pain tolerable and no further expansion of hematoma or development of any compartment syndrome symptoms. Currently his pain is improving. Patient can later have compressive wrap around his thigh and wear compression pants after a period of time. Monitor situation during hospital stay. Will continue to follow, at this point no surgical intervention is recommended. Subjective patient reports his pain is somewhat better this am, notices small improvements. denies numbness/tingling Review of Systems Constitutional: no fever and no chills Physical Exam Physical Exam: Vital Signs Temp Pulse Pulse Resp BP Pulse Ox 12/30/18 04:00 37.2 C 78 18 100/60 94 12/29/18 23:20 37.1 C 93 H 18 140/70 95 12/29/18 19:57 37.4 C 80 18 136/68 98 12/29/18 15:54 76 12/29/18 15:27 37.2 C 88 19 129/72 98 12/29/18 11:39 36.7 C 79 17 128/65 98 12/29/18 08:00 78 12/29/18 07:41 36.7 C 85 18 156/79 H 94 Intake and Output 12/29/18 12/29/18 12/30/18 14:59 22:59 06:59 Intake Total 790 / 1365 575 / 1365 Balance 790 / 1365 575 / 1365 Intake: Oral 790 / 1365 575 / 1365 Constitutional: WD/WN, vitals as above no acute distress Musculoskeletal: right leg: significant ecchymosis noted medial and posterior thigh, the area of hematoma is firm, the anterior and lateral thigh is soft and non-tender, with majority of hematoma involving proximal medial thigh. This area is firm and tender on palpation. He has good ROM of his hip and knee with only mild pain in the thigh. NV intact. Good cap refill. DP +2 Results & Data Vital Signs (Past 12 Hours) Vital Signs Temp Pulse Resp BP Pulse Ox 12/30/18 04:00 37.2 C 78 18 100/60 94 12/29/18 23:20 37.1 C 93 H 18 140/70 95 12/29/18 19:57 37.4 C 80 18 136/68 98 (1) Hematoma of right thigh Encounter type: subsequent encounter Qualified Code(s): S70.11XD - Contusion of right thigh, subsequent encounter
[2018-12-30 07:12] LABS: Hematocrit (blood only) 25.6 % (42-52); Hemoglobin 8.7 g/dL (14.0-18.0); Mean Corpuscular Hemoglobin 31.1 pg (25-34); Mean Corpuscular Volume 91.4 fL (80-100); Mean Platelet Volume 8.7 fL (7.4-10.4); Platelet Count 287 K/uL (130-400); RDW Coefficient of Variation 13.9 % (11.5-14.5); White Blood Count 6.09 K/uL (4.8-10.8)
[2018-12-30 07:21] LABS: INR 1.2 (0.9-1.1); Prothrombin Time 11.9 Seconds (9.0-12.0)
[2018-12-30] MEDS: DOCUSATE SODIUM 100 MG CAP PO SCH (08:34)
[2018-12-30] MEDS: MULTIVITAMIN TAB PO SCH (08:34)
[2018-12-30] MEDS: FERROUS SULFATE 325 MG TAB PO SCH (08:35)
--- NOTE | 2018-12-30 12:01 | Discharge Summary ---
Date of Service December 30, 2018 Admission HPI Per Admitting Provider 58 y/o male who presented to the ED from his PCP office with anemia as a result of hematoma in the right thigh. The patient was skydiving 5 days prior and suffered a hard landing which caused b/l sprained ankles and right thigh hematoma. He has had HGB checks over the past few days and today was found to have HGB 6.5. He is symptomatic with this finding to include lightheadedness with standing and overall fatigue. His situation is complicated in that he takes warfarin for mechanical aortic valve. He does have 8/10 pain in the the right thigh, but the pain is not more than he has been having. No F/C, cough, SOB, chest pain, N/V/D. Principal Diagnosis acute blood loss anemia 2nd to right thigh hematoma Discharge Exam Constitutional well developed and well nourished; no acute distress and no altered mental status ENMT external ear and nose normal, oropharynx normal Respiratory normal respiratory effort, lungs clear to auscultation Cardiovascular Rate/Rhythm: regular rate and regular rhythm Heart Sounds: normal S1 and normal S2 (mechanical valve closure sound); no murmur Vessels: posterior tibial pulses present and dorsalis pedis pulses present; no JVD Extremities: + edema (2-3+ right leg especially the thigh) Gastrointestinal (Abdomen) normal bowel sounds, soft, nontender, no hepatosplenomegaly Skin + ecchymosis (extensive; most of right thigh, worse medially -- no change from prior exam) Psychiatric A+Ox3, euthymic affect Discharge Data Allergies Allergy/AdvReac Type Severity Reaction Status Date / Time cyclobenzaprine Allergy Unknown Hyper Verified 12/27/18 15:47 Consultations [facility] Procedures Performed [address] Ordered Studies CT RIGHT femur: IMPRESSION: 1. No significant change in the 20 x 8 x 6 cm right psoas intramuscular hematoma. 2. Interval development of a 4.2 cm intramuscular hematoma within the right semimembranosus muscle. 3. Progressive subcutaneous edema within the right thigh. Hospital Course (1) Hematoma of right thigh: Due to trauma from rough landing after sukhdev-diving -- in the setting of chronic coumadin use for mechanical aortic valve. Had no signs of compartment syndrome in the right thigh while here. Coumadin was held due to the severity of the hematoma and his anemia. Seen by [facility] -- nonoperative management recommended. Patient was treated with ice and pain medications while hospitalized. At discharge he was advised to continue icing the right thigh for a few more days, then ultimately switch to heat. He will cautiously resume his coumadin about 24 hours post-discharge. INR at discharge was 1.2. He will NOT be bridged with any other agent; the coumadin will simply be allowed to come up slowly over time. He will follow-up with [facility] on January 05 for recheck of the thigh. (2) Acute blood loss anemia: 2nd to bleeding into right thigh as above Hb 9.2 on 12/24 dropped to mid 6's after that Hb in the 's in 2016 (don't have any other values between then and now) s/p 2 units PRBCS hospital day #1 recommended ferrous sulfate supplementation BID at discharge Hemoglobin was 8.7 on day of discharge (stable for 2 days before discharge) (3) Symptomatic anemia: s/p 2 units PRBCs hospital day #1 stable hemoglobins following the PRBCs (4) Anticoagulated on Coumadin: With a mechanical valve it is reasonable to hold coumadin for 4-5 days but it should be resumed shortly after that. Thus, in the setting of such a large hematoma and risk of ongoing bleeding, coumadin was indeed held during the admission. INR was 1.2 on day of discharge. He was counseled to resume his coumadin 24 hours post-discharge. His INR will be allowed to come up slowly over time. No bridging agent will be utilized. A repeat INR in 3-4 days post-discharge advised. (5) Aortic valve replaced: Mechanical aortic valve with INR goal of 2.5-3.5 INR 1.2 on day of discharge see discussion above (6) HTN (hypertension): Continue Terazosin. Controlled while here. (7) High cholesterol: Continue Atorvastatin Total Time Total Time Spent Total Time Spent (In Minutes): 35 Total Time Includes: Examination of the Patient, Discharge Planning, Medication Reconciliation and Communication With Other Providers (orthopedics) Discharge Plan Discharge Items Patient Disposition: Home - Self-Care Reason For Visit: ANEMIA DUE TO HEMATOMA Discharge Diagnosis: large hematoma of the right thigh due to trauma and concomitant coumadin use. anemia (low red cells) due to bleeding into the right thigh - 2 units of blood needed. Goals: 1. treat right thigh pain 2. receive blood transfusion 3. ensure bleeding has stopped Activity: As commented below Activity Comment: light stretching and light activities involving right leg Lifting: Gradually increase as tolerated Sexual Activity: Wait until after follow-up appointment Exercise/Sports: Wait until after follow-up appointment Driving/Machine Use: Resume 1 day after discharge Non-emergency contact: Primary Care Provider and Specialist Call non-emergency contact if: you have any medication questions, your symptoms worsen, your pain is not controlled, your pain is worsening and you have a fever Follow-up/Referrals: Kaylan Bahena CRNP [Primary Care Provider] - (see Ms Bahena in 3-5 days ) Paul Osei PA-C [Physician Shift Foreman] - 01/05/19 (follow-up orthopedics ) Diet: Regular Addtl Attending Provider Instructions: You have a large right thigh hematoma from recent trauma. The bleeding has stopped and your blood counts have stabilized in the last 48 hours. Your hemoglobin on day of discharge is 8.7 (your were 6.5 on day of admission). Your INR on day of discharge is 1.2. Recommendations - 1. HOLD your coumadin today. 2. RESUME your coumadin tomorrow on 12/31/18. On Tuesday please take 5 mg of coumadin (rather than your normal 2.5mg dose). Then on Tuesday continue your usual schedule of 5mg/day. 3. HAVE an INR check on Tuesday or of this week. 4. TAKE juku-orf-momsdak iron (ferrous sulfate) 325mg twice daily for 3 months. The iron will likely cause your stools to be dark and you may have constipation. 5. Avoid anti-inflammatory pills for now. This includes motrin, ibuprofen, aleve, etc. 6. Apply ICE to the right thigh several times a day for 20-30 minutes each time. Do this for the next 2-3 days. After that would switch to heat. 7. Continue light stretching exercises to stay limber. Avoid strenuous activities, however. 8. Follow-up with JACK Richter, at [facility] next Tuesday as scheduled. Return to [facility] if -- * you have any concerns that your right thigh hematoma is getting larger * you have worsening pain in the right thigh * you have numbness or tingling of the right leg * you have difficulty walking * you feel dizzy or lightheaded * you have shortness of breath * your temperature is 100.5 degrees or higher * any other concerns Pending Studies at Discharge: No Stand-Alone Forms: [facility] Medications and DC Order Prescriptions: New ferrous sulfate 325 mg (65 mg iron) Tablet,Delayed Release (Dr/Ec) 325 mg PO BID Qty: 60 RF: 2 Continued methocarbamol 500 mg tablet 500 - 1,000 mg PO QID PRN (Reason: muscle spasm) RF: 0 multivitamin capsule 1 cap PO DAILY RF: 0 atorvastatin 20 mg tablet 20 mg PO QPM Qty: 90 RF: 3 hydrocodone-acetaminophen [[place]] 5-325 mg tablet 1 tab PO Q6H PRN (Reason: pain) Qty: 20 RF: 0 terazosin 5 mg capsule 5 mg PO HS Qty: 90 RF: 3 sildenafil (antihypertensive) 20 mg tablet 20 mg PO ONCE Qty: 60 RF: 11 warfarin 5 mg tablet 5 mg PO [id number] RF: 0 warfarin 5 mg tablet 2.5 mg PO GRAHAM RF: 0 Discharge Orders: Discharge Order (Routine); Ordered 12/30/18 Ordered By: Jose Evans Admission Data Admit Date/Time: 12/27/18 21:23 Attending Provider: Jose Evans Admit Provider: Zuhair Thomas Primary Care Provider: Kaylan Bahena Other Providers: Matheus Mcclellan Other Interventions: Discharge Summary Assessment (RN) Last Done: 12/30/18 12:48 DC Date/Time DO NOT enter until pt leaves facility: 12/30/18 13:20
== END 2018-12-30 13:20 | disposition home or self-care (01) | DRG 812 ==
LOC: ED 16:50 → 2S 21:23 → SUATTDRO 21:23 → 2S 21:51